=== PATIENT | female | born 1985 | race Caucasian/White ===

== ENCOUNTER 2019-04-03 07:44 | Emergency (ER) | payer BC ==
[~2019-04-03] VITALS: Ht 157.5 cm; Wt 57.6 kg
[2019-04-03 07:53] VITALS: BP 123/82
--- NOTE | 2019-04-03 08:00 | NUR ---
BIB . AAO X4 C/O N/V/D SINCE 02:00 THIS MORNING. PT REPORTS HEADACHE STARTED AROUND MIDNIGHT, AND THEN SHE WOKE UP WITH NAUSEA AND VOMITING FROM 02:00 TO 03:00, AND DIARRHEA STARTED AT 05:00 THIS MORNING. PT ALSO REPORTS LUQ PAIN AT 2/10. DENIES FEVER, SOB. ABDOMEN SOFT, NON TENDER TO TOUCH. ER TO EVALUATE PT.
--- NOTE | 2019-04-03 08:18 | NUR ---
DR ESCALONA AT BEDSIDE FOR PT EVAL
[2019-04-03] MEDS ORDERED: NACL 0.9% 1,000 ML IV ONE (08:22)
[2019-04-03] MEDS ORDERED: NACL 0.9% 1,000 ML IV SCH (08:22)
[2019-04-03] MEDS ORDERED: PROMETHAZINE 25 MG/ML VIAL IM ONE (08:25)
[2019-04-03] MEDS ORDERED: ONDANSETRON 4 MG/2 ML VIAL IVP ONE (08:25)
[2019-04-03] MEDS ORDERED: METOCLOPRAMIDE 10 MG/2 ML INJ VIAL IVP ONE (08:25)
[2019-04-03] MEDS ORDERED: FAMOTIDINE 20 MG/2 ML VIAL IVP ONE (08:25)
[2019-04-03 08:41] LABS: BASOPHILS % (AUTO) 0.5 % (0.0-2.0); EOSINOPHILS % (AUTO) 0.1 % (0.0-4.0); HEMATOCRIT 41.7 % (36-48); HEMOGLOBIN 13.6 g/dL (12.0-16.0); LYMPHOCYTES # (AUTO) 0.8 K/uL (2.5-16.5); LYMPHOCYTES % (AUTO) 14.1 % (20.5-51.1); MEAN CORPUSCULAR HEMOGLOBIN 27 pg (27-31); MEAN CORPUSCULAR HGB CONC 33 g/dL (33-37); MEAN CORPUSCULAR VOLUME 84.2 fL (80-94); MONOCYTES # (AUTO) 0.2 K/uL (0.8-1.0); NEUTROPHILS # (AUTO) 4.9 K/uL (1.8-7.7); NEUTROPHILS % (AUTO) 82.3 % (42.2-75.2); PLATELET COUNT (AUTO) 247 K/uL (140-450); RED BLOOD CELL COUNT(AUTO) 4.95 MIL/uL (4.20-5.40); RED CELL DISTRIBUTION WIDTH 16.8 % (11.6-13.7); WHITE BLOOD COUNT (AUTO) 5.9 K/uL (4.8-10.8)
[2019-04-03 08:49] LABS: ANION GAP 12.8 (8-16); CARBON DIOXIDE 26.2 mmol/L (21-32); CREATININE 0.6 mg/dL (0.6-1.3)
[2019-04-03 08:52] LABS: APPEARANCE,URINE HAZY (CLEAR); BILIRUBIN,URINE NEGATIVE (NEGATIVE); BLOOD, URINE NEGATIVE (NEGATIVE); COLOR,URINE YELLOW (YELLOW); LEUKOCYTE ESTERASE ,URINE NEGATIVE (NEGATIVE); NITRITE, URINE POSITIVE (NEGATIVE); PH,URINE 8.5 (5.0-9.0); UGLUCOSE NEGATIVE (NEGATIVE)
--- NOTE | 2019-04-03 08:54 | NUR ---
IV AND IM MEDS GIVEN ORDERED. PT TOLERATED WELL.
[2019-04-03 08:57] LABS: ALBUMIN 4.3 g/dL (3.4-5.0); TOTAL BILIRUBIN 0.4 mg/dL (0.0-1.0)
[2019-04-03 09:05] LABS: RBC,URINE 0-5 /HPF (0-5); WBC,URINE 0-5 /HPF (0-5)
--- NOTE | 2019-04-03 09:31 | NUR ---
DR ESCALONA AT BEDSIDE FOR PT RE EVALUATION
[2019-04-03] MEDS ORDERED: NACL 0.9% 500 ML IV SCH (09:34)
[2019-04-03] MEDS ORDERED: cefTRIAXone 1,000 MG VIAL ONE (10:04)
--- NOTE | 2019-04-03 10:30 | NUR ---
PT AAO X4. FULL CLEAR SPEECH. PT STATES NO PAIN AT THIS TIME. VSS
[2019-04-03 11:05] VITALS: BP 118/76
--- NOTE | 2019-04-03 11:05 | NUR ---
Patient discharged with v/s stable. Written and verbal after care instructions given and explained. Patient alert, oriented and verbalized understanding of instructions. Ambulatory with steady gait. All questions addressed prior to discharge. ID band removed. Patient advised to follow up with PMD. Rx of Zofran, Bactrim DS, Pedialyte given. Patient educated on indication of medication including possible reaction and side effects. Opportunity to ask questions provided and answered.
== END 2019-04-03 11:05 | disposition home or self-care (01) ==
LOC: MED 07:44
DX: N39.0 Urinary tract infection, site not specified (principal); R19.7 Diarrhea, unspecified; R51 Headache
CPT/HCPCS: 36415; 80053; 81001; 82150; 83690; 85025; 87086; 96361; 96365; 96372; 96375; 99283; J0696; J2405; J2550; J2765; J3490; J7030; J7060; 81025